=== PATIENT | male | born 1970 | race Caucasian/White ===

== ENCOUNTER 2016-11-15 12:35 | Emergency (ER) | payer OTHER ==
[~2016-11-15] VITALS: Ht 188 cm; Wt 81.6 kg
[2016-11-15] MEDS ORDERED: HYDROCHLOROTHIA25 M1 PO ×2 (13:54→14:15)
[2016-11-15] MEDS ORDERED: METOPROLOL TART50 M1 PO (13:54)
[2016-11-15] MEDS ORDERED: AUGMENTIN 500-1 EACH PO (14:15)
[2016-11-15] MEDS ORDERED: METOPROLOL TART25 M1 PO (14:15)
--- NOTE | 2016-11-15 14:16 | ED INFLUENZA/URI COMPLAINT ---
History of Present Illness General Chief Complaint: Upper Respiratory Sx/Fever Stated Complaint: HEAD PAIN AND SINUS PRESSURE Source: patient Exam Limitations: no limitations Vital Signs & Intake/Output Vital Signs & Intake/Output Vital Signs Date Time Temp Pulse Resp B/P Pulse O2 O2 Flow FiO2 Ox Delivery Rate 11/15 1257 98.4 81 20 147/83 96 Room Air Allergies Coded Allergies: No Known Allergies (11/15/16) Reconcile Medications Hydrochlorothiazide 25 MG TABLET 1 TAB PO DAILY WATER PILL (Reported) Metoprolol Tartrate 50 MG TABLET 0.5 TAB PO BID HEART (Reported) Triage Note: TRIAGE: PT TO ER C/C COLD S/S X 2 WEEKS WITH SINUS PRESSURE AND EYE PAIN IN THE PAST COUPLE DAYS. ALSO REPORTS GREEN MUCOUS. Triage Nurses Notes Reviewed? yes HPI: Patient presents for evaluation of head pain and sinus pressure that began gradually about 2 weeks ago. Patient states symptoms have been constant but have been getting worse but do fluctuate in intensity. In addition he has had a green nasal discharge. Symptoms are described as moderate to severe and nothing seems to make him feel better. The sinus pressure and headache pain is located behind the eyes wraps up around to the back of the head. Past History Travel History Traveled to [place] past 21 day No Medical History Any Pertinent Medical History? see below for history Neurological: NONE EENT: NONE Cardiovascular: hypertension Respiratory: NONE Gastrointestinal: NONE Hepatic: NONE Renal: NONE Musculoskeletal: NONE Psychiatric: NONE Endocrine: NONE Blood Disorders: NONE Cancer(s): NONE SUPPLY CHAIN TECH/Reproductive: NONE Surgical History Surgical History: non-contributory Psychosocial History What is your primary language Nepali Tobacco Use: Current Daily Use Daily Tobacco Use Amount/Type: => 5 Cigarettes daily ETOH Use: occasional use Illicit Drug Use: denies illicit drug use Family History Hx Contributory? No Review of Systems Review of Systems Constitutional: Reports: no symptoms. EENTM: Reports: see HPI. Respiratory: Reports: no symptoms. Cardiovascular: Reports: no symptoms. GI: Reports: no symptoms. Genitourinary: Reports: no symptoms. Musculoskeletal: Reports: no symptoms. Skin: Reports: no symptoms. Neurological/Psychological: Reports: headache. Hematologic/Endocrine: Reports: no symptoms. Immunologic/Allergic: Reports: no symptoms. All Other Systems: Reviewed and Negative Physical Exam Physical Exam Ears, Nose, Throat: SEE BELOW Comments: Gen.: Well-nourished, well-developed, no acute respiratory distress. Head: Normocephalic, atraumatic. Eyes: Normal inspection bilaterally Ears: Normal inspection bilaterally Nose: Normal inspection, no nasal discharge Throat/mouth : Moist mucosa Neck: Supple, full range of motion, no goiter Lungs: Quiet respirations Back: Normal range of motion Extremities: Normal range of motion grossly Neurologic: Cranial nerves grossly intact, speech is clear Skin: warm and dry Psychiatric: Calm, cooperative, no apparent delusions or hallucinations Core Measures Severe Sepsis Present: No Septic Shock Present: No Progress Differential Diagnosis: sinusitis, VIRAL SYNDROME Plan of Care: See discharge instructions Initial ED EKG: none Departure Departure Disposition: HOME OR SELF CARE Condition: Stable Clinical Impression Primary Impression: Sinusitis Qualifiers: Sinusitis location: frontal Chronicity: acute Recurrence: not specified as recurrent Qualified Code: J01.10 - Acute frontal sinusitis, unspecified Referrals: UNKNOWN (PCP/Family) Additional Instructions: AUGMENTIN PRESCRIBED. CORICIDIN HBP NEEDED FOR CONGESTION. FLUIDS AND REST. SEE YOUR DOCTOR IN 72 HOURS IF NOT IMPROVING. RETURN IF ANY CONCERNS OR WORSENING. Departure Forms: Customer Survey General Discharge Information Prescriptions: Current Visit Scripts Augmentin (Augmentin 500-125 Tablet) 1 TAB PO TID #21 TAB Metoprolol Tartrate 1 TAB PO BID #14 TAB Hydrochlorothiazide 1 TAB PO DAILY #7 TAB
[2016-11-15 14:19] VITALS: BP 132/74
== END 2016-11-15 14:21 ==
LOC: ERH 12:35
DX: J32.9 Chronic sinusitis, unspecified (principal); Z72.0 Tobacco use